=== PATIENT | male | born 1995 | race Caucasian/White ===

== ENCOUNTER 2021-05-11 22:11 | Emergency (ER) | payer BC ==
[~2021-05-11] VITALS: Ht 182.9 cm; Wt 72.0 kg
[2021-05-11 22:31] VITALS: BP 135/63
[2021-05-11] MEDS ORDERED: ondansetron 4mg rapidly disintigrating tab PO ONE (23:10)
[2021-05-12] MEDS ORDERED: ONDA-103 PO (02:14)
== END 2021-05-12 02:15 | disposition home or self-care (01) ==
LOC: ER 22:13
DX: B34.9 Viral infection, unspecified (principal); Z20.822 Contact with and (suspected) exposure to COVID-19; R11.0 Nausea; R50.9 Fever, unspecified; R10.84 Generalized abdominal pain; Z79.899 Other long term (current) drug therapy
CPT/HCPCS: 87635; 99283; C9803